=== PATIENT | female | born 1995 | race Two or more races ===

== ENCOUNTER 2022-07-17 19:58 | Emergency (ER) | payer MEDICAID, OTHER ==
[~2022-07-17] VITALS: Ht 170.2 cm; Wt 62.1 kg
--- NOTE | 2022-07-17 20:15 | NUR ---
LAB AT BEDSIDE
--- NOTE | 2022-07-17 20:15 | NUR ---
[facility] [employer] AND [employer] FOR C/O HEADACHE S/P TAKING WELBUTRIN, XANAX AND ZOLOFT. 8 TABS OF EACH. + SI, -HI RR EVEN AND UNLABORED NO SOB NOTED. PATIENT CONNECTED TO CARDIAC AND POX MONITOR.
[2022-07-17 20:32] LABS: BASOPHILS % (AUTO) 0.7 % (0.0-2.0); EOSINOPHILS % (AUTO) 1.9 % (0.0-6.0); HEMATOCRIT 40 % (33-45); HEMOGLOBIN 13.5 g/dL (11.5-14.8); LYMPHOCYTES # (AUTO) 0.9 K/uL (0.8-4.8); LYMPHOCYTES % (AUTO) 15.6 % (20.0-44.0); MEAN CORPUSCULAR HGB CONC 33 g/dl (31.0-36.0); MEAN CORPUSCULAR VOLUME 88 fL (82-100); MONOCYTES # (AUTO) 0.3 K/uL (0.1-1.30); MONOCYTES % (AUTO) 4.9 % (2.0-12.0); NEUTROPHILS # (AUTO) 4.5 K/uL (1.8-8.9); NEUTROPHILS % (AUTO) 76.9 % (43.0-81.0); PLATELET COUNT (AUTO) 249 K/uL (150-450); RED BLOOD CELL COUNT(AUTO) 4.56 MIL/uL (4.0-5.2); WHITE BLOOD COUNT (AUTO) 5.9 K/uL (4.3-11.0)
[2022-07-17 20:47] LABS: CALCIUM, SERUM 8.6 mg/dL (8.5-10.1); CARBON DIOXIDE 28 mmol/L (21-32); CHLORIDE 106 mmol/L (98-107); CREATININE 0.8 mg/dL (0.6-1.3); GLUCOSE 108 mg/dL (74-106); SODIUM SERUM 141 mmol/L (136-145); UREA NITROGEN, BLOOD 14 mg/dL (7-18)
[2022-07-17 20:53] LABS: ALANINE AMINOTRANSFERASE 19 U/L (12-78); ALBUMIN 3.7 g/dL (3.4-5.0); ALCOHOL, BLOOD < 3 mg/dL (0-0); ALKALINE PHOSPHATASE 57 U/L (46-116); ASPARTATE AMINOTRANSFERASE 11 U/L (15-37); BILIRUBIN,DIRECT 0.2 mg/dL (0.0-0.2); BILIRUBIN,TOTAL 0.5 mg/dL (0.2-1.0)
[2022-07-17 20:55] LABS: ACETAMINOPHEN < 2 ug/ml (10-30)
--- NOTE | 2022-07-17 21:04 | NUR ---
COVID SWAB COLLECTED SENT TO LAB
--- NOTE | 2022-07-17 21:04 | NUR ---
URINE COLLECTED SENT TO LAB
[2022-07-17 22:27] LABS: BILIRUBIN,URINE NEGATIVE (NEGATIVE); COLOR,URINE YELLOW (YELLOW); LEUKOCYTE ESTERASE ,URINE NEGATIVE (NEGATIVE); NITRITE, URINE NEGATIVE (NEGATIVE); PROTEIN,URINE NEGATIVE (NEGATIVE); UGLUCOSE NEGATIVE (NEGATIVE); UROBILINOGEN,URINE 0.2 EU/dL (0.2)
--- NOTE | 2022-07-17 22:41 | NUR ---
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 ETA [id number]
--- NOTE | 2022-07-18 00:15 | NUR ---
[facility] AT BEDSIDE
--- NOTE | 2022-07-18 10:40 | NUR ---
ACCEPTED AT [facility] UNDER DR JOSUE NUMBER FOR REPORT [phone] [phone] TECHNICAL SPECIALIST INCIDENT # [id number] WILL ARRANGE TRANSPORT.
--- NOTE | 2022-07-18 10:45 | NUR ---
[facility] CALLED FOR TRANSPORT ETA 90 MINS.
[2022-07-18 11:05] VITALS: BP 125/60
--- NOTE | 2022-07-18 11:43 | NUR ---
REPORT GIVEN TO CHARGE NURSE MARLENA AT [facility].
--- NOTE | 2022-07-18 12:20 | NUR ---
Patient discharged to [facility] via ambulance accompanied by 2 nuclear medicine medical director. Written and verbal after care instructions given. Patient verbalizes understanding of instruction.
== END 2022-07-18 12:25 ==
LOC: ER 20:00
DX: T43.222A Poisoning by selective serotonin reuptake inhibitors, intentional self-harm, initial encounter (principal); T43.292A Poisoning by other antidepressants, intentional self-harm, initial encounter; T42.4X2A Poisoning by benzodiazepines, intentional self-harm, initial encounter; Y92.89 Other specified places as the place of occurrence of the external cause; F32.A Depression, unspecified; Z20.822 Contact with and (suspected) exposure to COVID-19
CPT/HCPCS: 99285; 85025; 80048; 80076; 84703; 81003; 36415; 87426; 80143; 80320; 80307; C9803; G0480

== ENCOUNTER 2022-10-23 15:53 | Emergency (ER) | payer SELFPAY ==
--- NOTE | 2022-10-23 16:55 | NUR ---
CALLED TO TRIAGE,NO ANSWER
--- NOTE | 2022-10-23 17:20 | NUR ---
Sonu reveles in [facility] - 10/23/22 at 1732 by MARTINE CALLED TO TRIAGE,NO ANSWER
--- NOTE | 2022-10-23 17:20 | NUR ---
CALLED TO TRIAGE,NO ANSWER
== END 2022-10-23 17:35 | disposition left against medical advice (07) ==
LOC: ER 15:53
DX: Z53.21 Procedure and treatment not carried out due to patient leaving prior to being seen by health care provider (principal)